=== PATIENT | male | born 1965 | race African-American/Black ===

== ENCOUNTER 2024-05-11 15:19 | Emergency (ER) | payer OTHER, SELFPAY ==
[2024-05-11 15:34] VITALS: BP 139/76; PULSE 76; RESP 16; TEMP 36.6; O2SAT 98
--- NOTE | 2024-05-11 15:34 | ED.SKABFB ---
HPI - Skin/Abscess/Foreign Bdy General Chief complaint: Skin/Abscess/Foreign Body Stated complaint: finger abscess Time Seen by Provider: 05/11/24 15:34 History of Present Illness HPI narrative: 59-year-old male presents emergency room for evaluation of a ?infection to his right ring finger?. Caregiver states that she frequently bites his nails. Review of Systems Review of Systems: ROS unremarkable except for noted in HPI Exam Narrative: GENERAL: Well-appearing, well-nourished, no physical limitations, and in no acute distress. HEAD: Normocephalic, atraumatic. EYES: Conjunctivae normal, PERRLA and EOMI. CHEST: Clear to auscultation. No respiratory distress. No wheezes rales or rhonchi. No tenderness. HEART: Regular rate and rhythm. No murmur heard. Normal peripheral pulses. EXTREMITIES: Normal range of motion. No edema. No clubbing or cyanosis SKIN: Right ring finger: Paronychia noted to proximal nail fold NEURO: No focal deficits. Alert and oriented x3. MAEW. CN's II-XI intact bilaterally, normal gait PSYCH: Cooperative. Normal mood and affect. Course Vital Signs Vital signs: Vital Signs Temperature 36.6 C 05/11/24 15:34 Pulse Rate 76 05/11/24 15:34 Respiratory Rate 16 05/11/24 15:34 Blood Pressure 139/76 05/11/24 15:34 Pulse Oximetry 98 05/11/24 15:34 Oxygen Delivery Room Air 05/11/24 15:34 Temperature 36.6 C 05/11/24 15:34 Pulse Rate 76 05/11/24 15:34 Respiratory Rate 16 05/11/24 15:34 Blood Pressure 139/76 05/11/24 15:34 Pulse Oximetry 98 05/11/24 15:34 Oxygen Delivery Room Air 05/11/24 15:34 Procedures Abscess I/D hand: Date of Incision: 05/11/24 Time of Incision: 15:57 Side (if applicable): right Sedation/analgesia: none Local Anesthetic: none Technique: needle aspiration Amount of fluid expressed (mL): 3 Packing used?: none I&D Results: Pus and Blood Abcess I&D Additional Comments: paronychia drained from right ring finger Discharge Plan Discharge Clinical Impression: Paronychia due to ingrown nail Patient Disposition: Home, Self-Care Condition: Stable Instructions: Antibiotic Form, Paronychia (ED) Prescriptions: New sulfamethoxazole-trimethoprim [Bactrim DS] 800-160 mg tablet 1 tablet PO Q12H Qty: 14 0RF sulfamethoxazole-trimethoprim [Bactrim DS] 800-160 mg tablet 1 tablet PO Q12H Qty: 20 0RF Follow-up/Referrals: PHYSICIAN NOT ON STAFF,NONSTAFF [Non-Staff] - Time of Disposition: 15:46
== END 2024-05-11 16:08 | disposition home or self-care (01) ==
PROVIDERS: Emergency Provider Nurse Practitioner Family
DX: L03.011 Cellulitis of right finger (principal); L60.0 Ingrowing nail
CPT/HCPCS: 10060; 26010; 99283